=== PATIENT | female | born 1975 | race Two or more races ===

== ENCOUNTER → 2016-12-18 | Outpatient (REF) | payer MEDICAID, OTHER | LOC: M SFHCLERA 16:15 | PROVIDERS: ATTEND Family Medicine | DX: Z13.220 Encounter for screening for lipoid disorders (principal); Z13.1 Encounter for screening for diabetes mellitus ==

== ENCOUNTER → 2017-03-08 | Outpatient (CLI) | payer OTHER | LOC: M LRY 14:01 | DX: R06.02 Shortness of breath (principal) | CPT/HCPCS: 71046 ==

== ENCOUNTER → 2017-07-12 | Outpatient (CLI) | payer OTHER, MEDICAID | LOC: M LRY 12:18 | DX: M25.561 Pain in right knee (principal) | CPT/HCPCS: 73564 ==

== ENCOUNTER → 2018-06-07 | Outpatient (CLI) | payer MEDICAID ==
--- NOTE | 2018-06-07 10:16 | REP ---
LUMBAR SPINE SEVEN VIEWS: HISTORY: Back pain. The patient is status post T4 to L2 posterior spinal fusion. Metal hardware is present. There is no acute fracture or subluxation. The L2-3 and L3-4 intervertebral discs are decreased in height consistent with disc degeneration. Osteophytes are present at L2 and L3. The facet joints are normal in appearance. There is spinal bifida occulta of S1. There is scoliosis of the lower thoracic and lumbar spine convex to the left. IMPRESSION: 1. The patient is status post T4 to L2 posterior spinal fusion. 2. Degenerative change as described above. Electronically Signed by Cisco Garcia MD 06/07/2018 10:30 A
--- NOTE | 2018-06-07 10:17 | REP ---
THORACIC SPINE, THREE VIEWS: HISTORY: Back pain. The patient is status post T4 to L2 posterior spinal fusion. Metal hardware is present. There is no acute fracture or subluxation. The intervertebral discs are normal in height. There is scoliosis of the upper thoracic spine convex to the left and mid and lower thoracic spine convex to the right. IMPRESSION: The patient is status post T4 to L2 posterior spinal fusion. Electronically Signed by Cisco Garcia MD 06/07/2018 10:31 A
== END ==
LOC: M LRY 09:10
PROVIDERS: ATTEND Family Medicine
DX: M51.36 Other intervertebral disc degeneration, lumbar region (principal); Q76.0 Spina bifida occulta; M41.9 Scoliosis, unspecified; Z98.1 Arthrodesis status

== ENCOUNTER → 2018-11-11 | Outpatient (REF) | payer OTHER ==
[2018-11-11 20:52] LABS: BASO # 0.1 10^3/uL (0.0-0.2); BASO % 1.3 % (0.0-1.0); EOS # 0.2 10^3/uL (0.0-0.5); HEMATOCRIT 36.4 % (36.0-47.0); HEMOGLOBIN 11.8 g/dl (12.0-15.5); LYMPH # 2.3 10^3/uL (1.5-5.0); LYMPH % 41.7 % (24.0-44.0); MEAN CORPUSCULAR HEMOGLOBIN 29.6 pg (27.0-33.0); MEAN CORPUSCULAR HGB CONC 32.4 g/dl (32.0-36.5); MEAN CORPUSCULAR VOLUME 91.2 fl (80.0-96.0); MONO # 0.4 10^3/uL (0.0-0.8); MONO % 7.6 % (0.0-5.0); NEUTROPHILS # 2.5 10^3/uL (1.5-8.5); NEUTROPHILS % 46.2 % (36.0-66.0); PLATELET COUNT, AUTOMATED 351 10^3/uL (150-450); RED BLOOD COUNT 3.99 10^6/uL (4.00-5.40); WHITE BLOOD COUNT 5.4 10^3/uL (4.0-10.0)
[2018-11-11 21:02] LABS: ALBUMIN 3.9 GM/DL (3.2-5.2); ALT/SGPT 16 U/L (12-78); BILIRUBIN,TOTAL 0.2 MG/DL (0.2-1.0); BLOOD UREA NITROGEN 13 MG/DL (7-18); CALCIUM LEVEL 8.9 MG/DL (8.5-10.1); CARBON DIOXIDE LEVEL 27 MEQ/L (21-32); CHLORIDE LEVEL 108 MEQ/L (98-107); CREATININE FOR GFR 0.83 MG/DL (0.55-1.30); GLOMERULAR FILTRATION RATE > 60.0 (>58); GLUCOSE, FASTING 83 MG/DL (70-100); POTASSIUM SERUM 4.5 MEQ/L (3.5-5.1); SODIUM LEVEL 140 MEQ/L (136-145); TOTAL PROTEIN 7.1 GM/DL (6.4-8.2)
== END ==
LOC: M SFHCLERA 14:47
PROVIDERS: ATTEND Family Medicine
DX: F31.31 Bipolar disorder, current episode depressed, mild (principal)

== ENCOUNTER → 2018-11-26 | Outpatient (REF) | payer OTHER ==
[2018-11-26 11:51] LABS: BASO # 0.1 10^3/uL (0.0-0.2); BASO % 1.3 % (0.0-1.0); EOS # 0.2 10^3/uL (0.0-0.5); EOS % 3.8 % (0.0-3.0); HEMATOCRIT 38.3 % (36.0-47.0); HEMOGLOBIN 12.4 g/dl (12.0-15.5); LYMPH # 1.7 10^3/uL (1.5-5.0); LYMPH % 44.1 % (24.0-44.0); MEAN CORPUSCULAR HEMOGLOBIN 30.6 pg (27.0-33.0); MEAN CORPUSCULAR HGB CONC 32.4 g/dl (32.0-36.5); MEAN CORPUSCULAR VOLUME 94.6 fl (80.0-96.0); MONO # 0.5 10^3/uL (0.0-0.8); MONO % 12.3 % (0.0-5.0); NEUTROPHILS # 1.5 10^3/uL (1.5-8.5); NEUTROPHILS % 38.5 % (36.0-66.0); PLATELET COUNT, AUTOMATED 269 10^3/uL (150-450); RED BLOOD COUNT 4.05 10^6/uL (4.00-5.40); WHITE BLOOD COUNT 3.9 10^3/uL (4.0-10.0)
[2018-11-26 12:09] LABS: ALBUMIN 3.6 GM/DL (3.2-5.2); ALT/SGPT 14 U/L (12-78); BILIRUBIN,TOTAL 0.4 MG/DL (0.2-1.0); BLOOD UREA NITROGEN 14 MG/DL (7-18); CARBON DIOXIDE LEVEL 29 MEQ/L (21-32); CHLORIDE LEVEL 106 MEQ/L (98-107); CREATININE FOR GFR 0.74 MG/DL (0.55-1.30); FERRITIN 59 NG/ML (8-252); GLOMERULAR FILTRATION RATE > 60.0 (>58); GLUCOSE, FASTING 83 MG/DL (70-100); IRON (FE) 123 UG/DL (50-170); PERCENT SATURATION 39.8 % (13.2-45.0); POTASSIUM SERUM 4.7 MEQ/L (3.5-5.1); SODIUM LEVEL 141 MEQ/L (136-145); TOTAL IRON BINDING CAPACITY 309 UG/DL (250-450); VALPROIC ACID (DEPAKOTE) 40.8 UG/ML (50.0-100.0)
[2018-11-26 12:12] LABS: VITAMIN B12 LEVEL 739 PG/ML
[2018-11-26 12:13] LABS: FOLATE 14.5 NG/ML
== END ==
LOC: M SFHCLERA 08:45
PROVIDERS: ATTEND Family Medicine
DX: F31.31 Bipolar disorder, current episode depressed, mild (principal); D64.9 Anemia, unspecified

== ENCOUNTER → 2018-12-05 | Outpatient (REF) | payer OTHER ==
[2018-12-05 11:34] LABS: BASO # 0.1 10^3/uL (0.0-0.2); BASO % 1.4 % (0.0-1.0); EOS # 0.3 10^3/uL (0.0-0.5); HEMATOCRIT 38.8 % (36.0-47.0); HEMOGLOBIN 12.7 g/dl (12.0-15.5); LYMPH # 1.9 10^3/uL (1.5-5.0); LYMPH % 37.8 % (24.0-44.0); MEAN CORPUSCULAR HEMOGLOBIN 30.6 pg (27.0-33.0); MEAN CORPUSCULAR HGB CONC 32.7 g/dl (32.0-36.5); MEAN CORPUSCULAR VOLUME 93.5 fl (80.0-96.0); MONO # 0.6 10^3/uL (0.0-0.8); MONO % 11.5 % (0.0-5.0); NEUTROPHILS # 2.1 10^3/uL (1.5-8.5); NEUTROPHILS % 42.3 % (36.0-66.0); PLATELET COUNT, AUTOMATED 374 10^3/uL (150-450); RED BLOOD COUNT 4.15 10^6/uL (4.00-5.40); WHITE BLOOD COUNT 4.9 10^3/uL (4.0-10.0)
== END ==
LOC: M SFHCLERA 08:01
PROVIDERS: ATTEND Family Medicine
DX: F31.31 Bipolar disorder, current episode depressed, mild (principal)

== ENCOUNTER 2019-08-28 16:04 | Emergency (ER) | payer MEDICAID, OTHER, SELFPAY ==
[~2019-08-28] VITALS: Ht 170.2 cm; Wt 68.6 kg
[2019-08-28 16:05] VITALS: BP 120/70
[2019-08-28] MEDS ORDERED: MONT10TA4 (17:07)
[2019-08-28] MEDS ORDERED: AMIT75TA (17:07)
[2019-08-28] MEDS ORDERED: ALBU8.5H (17:07)
[2019-08-28] MEDS ORDERED: ARNU1INH3 (17:07)
[2019-08-28] MEDS ORDERED: BOOSTRIX/ADACEL VACCINE (DIPHTH/PERTUSS/ACELL/TETANUS) 0.5ML SYR IM ONE (17:30)
[2019-08-28] MEDS ORDERED: BACITRACIN OINTMENT 30GM TUBE TOP ONE (17:30)
[2019-08-28] MEDS ORDERED: BACI500O21 TOP (17:36)
== END 2019-08-28 18:00 | disposition home or self-care (01) ==
LOC: M ED 16:04
DX: L55.1 Sunburn of second degree (principal); L55.0 Sunburn of first degree

== ENCOUNTER → 2019-12-10 | Outpatient (CLI) | payer OTHER ==
[~2019-12-10] MED LIST: ALBU8.5H; AMIT75TA; ARNU1INH3; BACI500O21 TOP; MONT10TA4
[2019-12-10 16:59] LABS: ALBUMIN 3.7 GM/DL (3.2-5.2); ALT/SGPT 14 U/L (12-78); BILIRUBIN,TOTAL 0.4 MG/DL (0.2-1.0); BLOOD UREA NITROGEN 18 MG/DL (7-18); CALCIUM LEVEL 9.2 MG/DL (8.5-10.1); CARBON DIOXIDE LEVEL 27 MEQ/L (21-32); CHLORIDE LEVEL 109 MEQ/L (98-107); CREATININE FOR GFR 0.89 MG/DL (0.55-1.30); GLOMERULAR FILTRATION RATE > 60.0 (>58); GLUCOSE, FASTING 104 MG/DL (70-100); POTASSIUM SERUM 4.2 MEQ/L (3.5-5.1); SODIUM LEVEL 140 MEQ/L (136-145)
[2019-12-10 17:11] LABS: BASO # 0.1 10^3/uL (0.0-0.2); BASO % 1.1 % (0.0-1.0); EOS # 0.3 10^3/uL (0.0-0.5); EOS % 3.4 % (0.0-3.0); HEMATOCRIT 39.4 % (36.0-47.0); HEMOGLOBIN 12.8 g/dl (12.0-15.5); LYMPH # 1.8 10^3/uL (1.5-5.0); MEAN CORPUSCULAR HEMOGLOBIN 29.9 pg (27.0-33.0); MEAN CORPUSCULAR HGB CONC 32.5 g/dl (32.0-36.5); MEAN CORPUSCULAR VOLUME 92.1 fl (80.0-96.0); MONO # 0.7 10^3/uL (0.0-0.8); MONO % 9.2 % (0.0-5.0); NEUTROPHILS # 4.5 10^3/uL (1.5-8.5); PLATELET COUNT, AUTOMATED 330 10^3/uL (150-450); RED BLOOD COUNT 4.28 10^6/uL (4.00-5.40); WHITE BLOOD COUNT 7.3 10^3/uL (4.0-10.0)
[2019-12-10 17:32] LABS: HEMOGLOBIN A1c 5.1 %
== END ==
LOC: M WUC 14:34
PROVIDERS: ATTEND Family Medicine
DX: R53.83 Other fatigue (principal); K59.00 Constipation, unspecified

== ENCOUNTER → 2020-03-31 | Outpatient (CLI) | payer OTHER ==
[~2020-03-31] MED LIST changes: -AMIT75TA; +AMIT75TA PO; +ARIP1TAB PO; +CLAR10CA3 PO; +ECHI1CAP2 PO; +LEVOTAB10 PO; +MONT10TA10; +MONT10TA10 PO; -MONT10TA4; +OMEP-218 PO
== END ==
LOC: M LABSMTC 11:45
PROVIDERS: ATTEND Anesthesiology
DX: Z01.812 Encounter for preprocedural laboratory examination (principal); Z20.822 Contact with and (suspected) exposure to COVID-19

== ENCOUNTER 2020-04-05 09:15 | Day surgery (SDC) | payer OTHER ==
[~2020-04-05] VITALS: Ht 170.2 cm; Wt 65.2 kg
[~2020-04-05 09:15] MED LIST changes: -CLAR10CA3 PO; -ECHI1CAP2 PO; -MONT10TA10; -MONT10TA10 PO; +MONT5TAB2; +MONT5TAB2 PO; +NS 1,000 ML IV ONE
--- OUTSIDE RECORDS SUMMARY | 2020-04-05 09:21 | CCD | Continuity of Care Document ---
Author Author Carol LUNA M.D. Organization Unknown Address [address] [place] [address], [address] [place] [address] Phone [phone] Care Team Providers Care Medical Records Secretary Name Role Phone Flaquita Johnson M.D. AUTM [phone] AUTM Unavailable Problems Active Problems Provider Date Uncomplicated moderate persistent asthma SAMANTA Gray Onset: 12/08/2019 Allergic asthma without status asthmaticus Robin gonzales M.D. Onset: 03/17/2020 Social History Type Date Description Comments Sex Unknown ETOH Use 2x/wk Tobacco Use Start: Unknown End: Unknown Patient is a former smoker Smoking Status Reviewed: 12/08/19 Patient is a former smoker Allergies, Adverse Reactions, Alerts Description No Known Drug Allergies Medications Active Medications SIG Qnty Indications Ordering Provide r Date Arnuity Ellipta 200mcg/Act Aerosol inhale one puff by mouth every day 30units J45.40 SAMANTA Gray 04/06 Montelukast Sodium 10mg Tablets 1 by mouth every day 30tabs SAMANTA Gray Ventolin HFA 108(90Base) mcg/Act A erosol 2 puffs four times a day as needed 18units SAMANTA Gray Claritin 10mg Tablets 1tab po qd Unknown Prilosec OTC 20mg Tablets DR 1tab po bid Unknown Echinacea 760MG Tablet 1tab po bid Unknown 0 Turmeric 500mg Capsules 1cap po bid Unknown Immunizations Description No Information Available Vital Signs Date Vital Result Comment 03/17/2020 10:30am BP Systolic 114 mmHg BP Diastolic 66 mmHg Height 67 inches 5'7" Weight 150.00 lb BMI (Body Mass Index) 23.5 kg/m2 [place] Body Weight 135 lb Weight 68.040 kg BSA (Body Surface Area) 1.79 m2 12/08/2019 1:23pm BP Systolic 114 mmHg BP Diastolic 76 mmHg Heart Rate 76 /min O2 % BldC Oximetry 100 % Body Temperature 97.3 F Height 66.5 inches 5'6.50" Weight 149.00 lb BMI (Body Mass Index) 23.7 kg/m2 [place] Body Weight 130 lb Weight 67.586 kg BSA (Body Surface Area) 1.77 m2 Results Description No Information Available Procedures Date Code Description Status 12/08/2019 43676 Spirometry Completed Medical Devices Description No Information Available Encounters Type Date Location Provider Dx Diagnosis Office Visit 12/08/2019 1:30p [facility] SAMANTA [place]berry J45.40 Moderate persistent asthma, uncomplicate d Assessments Date Code Description Provider 03/17/2020 K59.00 Constipation, unspecified Stephanie Luna M.D. 12/08/2019 J45.40 Moderate persistent asthma, unco mplicated SAMANTA Gray Plan of Treatment Future Appointment(s):* 12/07/2020 11:00 am - SAMANTA Gray at [facility] 03/17/2020 - Robin Luna M.D.* K59.00 Constipation, unspecified * * Comments:* Impression:-- Chronic constipation- worsening and responding to miralax, -- Needs further evaluation -- DDx- r/o functional vs colon polyp and cancer * Recommendations:* -- Patient is educated about the prior test results and all possible differential diagnoses. All questions answered. -- Educated patient to take high fiber diet and current laxatives - miralax daily -- Will schedule for diagnostic colonoscopy. The procedure, indications, risks (bleeding, perforation, infection, hypotension, respiratory depression, allergy, need for endotracheal intubation, surgery, colostomy, cardiac arrest, even ), benefits, limitations (e.g., missing a lesion), and all other alternatives (including no intervention) were explained to the patient who understood and agreed/ consented for the procedure. -- Return to clinic 2 weeks post procedures. -- Follow up with PMD for routine medical care and other age appropriate health maintenance.. Functional Status Description No Information Available Mental Status Description No Information Available Referrals Refer to Reason for Referral Status Appt Date Robin Luna M.D. new onset constipation Created 03/17/[address] [place] [address], [place] [id number] [phone]
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
--- OUTSIDE RECORDS SUMMARY | 2020-04-05 09:21 | CCD ---
Author Author [facility] Organization [facility] Address Unknown Phone Unavailable Care Team Providers Care Loans Consultant Name Role Phone Arely, L Alka CREDIT ADMINISTRATOR Unavailable Unavailable Arely, L Alka CREDIT ADMINISTRATOR Unavailable Unavailable Arely, L Alka CREDIT ADMINISTRATOR Unavailable Unavailable Arely, L Alka CREDIT ADMINISTRATOR Unavailable Unavailable Arely, L Alka CREDIT ADMINISTRATOR Unavailable Unavailable Arely, L Alka CREDIT ADMINISTRATOR Unavailable Unavailable Arely, L Alka CREDIT ADMINISTRATOR Unavailable Unavailable Arely, L Alka CREDIT ADMINISTRATOR Unavailable Unavailable Arely, L Alka CREDIT ADMINISTRATOR Unavailable Unavailable Arely, L Alka CREDIT ADMINISTRATOR Unavailable Unavailable Arely, L Alka CREDIT ADMINISTRATOR Unavailable Unavailable Arely, L Alka CREDIT ADMINISTRATOR Unavailable Unavailable Arely, L Alka CREDIT ADMINISTRATOR Unavailable Unavailable Arely, L Alka CREDIT ADMINISTRATOR Unavailable Unavailable Arely, L Alka CREDIT ADMINISTRATOR Unavailable Unavailable Arely, L Alka CREDIT ADMINISTRATOR Unavailable Unavailable Arely, L Alka CREDIT ADMINISTRATOR Unavailable Unavailable Arely, L Alka CREDIT ADMINISTRATOR Unavailable Unavailable Arely, L Alka CREDIT ADMINISTRATOR Unavailable Unavailable Arely, L Alka CREDIT ADMINISTRATOR Unavailable Unavailable Arely, L Alka CREDIT ADMINISTRATOR Unavailable Unavailable Arely, L Alka CREDIT ADMINISTRATOR Unavailable Unavailable Re-disclosure Warning The records that you are about to access may contain information from federally-assisted alcohol or drug abuse programs. If such information is present, then the following federally mandated warning applies: This information has been disclosed to you from records protected by federal confidentiality rules (42 CFR part 2). The federal rules prohibit you from making any further disclosure of this information unless further disclosure is expressly permitted by the written consent of the person to whom it pertains or as otherwise permitted by 42 CFR part 2. A general authorization for the release of medical or other information is NOT sufficient for this purpose. The Federal rules restrict any use of the information to criminally investigate or prosecute any alcohol or drug abuse patient.The records that you are about to access may contain highly sensitive health information, the redisclosure of which is protected by Article 27-F of the [facility] Public Health law. If you continue you may have access to information: Regarding HIV / AIDS; Provided by facilities licensed or operated by the [facility] Office of Mental Health; or Provided by the [facility] Office for People With Developmental Disabilities. If such information is present, then the following [facility] mandated warning applies: This information has been disclosed to you from confidential records which are protected by state law. State law prohibits you from making any further disclosure of this information without the specific written consent of the person to whom it pertains, or as otherwise permitted by law. Any unauthorized further disclosure in violation of state law may result in a fine or fdc sentence or both. A general authorization for the release of medical or other information is NOT sufficient authorization for further disc losure. Encounters Encounter Providers Location Date Indications Data Source(s ) Unknown [address] [place] [id number] 03/17/2020 12:00:00 AM EST eCW1 ([facility]) Outpatient [address] [facility] [id number] 01/08/2020 12:00:00 AM EST eCW1 ([facility]) Outpatient Attender: Alka Velarde/Reynaldo/Barron/Regla 12/08/2019 01:30:00 PM EDT MEDENT ([facility]) Unknown [address] [facility] [id number] 12/05/2019 12:00:00 AM EDT eCW1 ([facility]) Outpatient [address] [facility] [id number] 12/04/2019 12:00:00 AM EDT eCW1 ([facility]) [facility] [address] [place] [phone] 08/29/2019 12:00:00 AM EDT eCW1 ([facility] [address] [place] [address] 05/05/2019 12:00:00 AM EST eCW1 ([facility]) [facility] [address] [facility] [address] 04/30/2019 12:00:00 AM EST eCW1 ([facility]) [facility] [address] [place] [phone] 04/14/2019 12:00:00 AM EST eCW1 ([facility]) [address] [address] 03/31/2019 12:00:00 AM EST eCW1 ([facility]) [facility] [address] [place] [address], [place] [address] 03/19/2019 12:00:00 AM EST eCW1 ([facility]) [facility] [address] [place] [address], [place] [address] 03/10/2019 12:00:00 AM EST eCW1 ([facility]) [facility] [address] [place] [address], [place] [address] 02/14/2019 12:00:00 AM EST eCW1 ([facility]) [facility] [address] [place] [address], [place] [address] 02/05/2019 12:00:00 AM EST eCW1 ([facility]) Immunizations Vaccine Date Status Description Data Source(s) influenza, recombinant, quadrIvalent,injectable, prese rvative free 01/08/2020 11:01:00 AM EST completed eCW1 ([facility]) influenza, recombinant, quadrIvalent,injectable, prese rvative free 01/08/2020 11:01:00 AM EST completed eCW1 ([facility]) influenza, recombinant, quadrIvalent,injectable, prese rvative free 03/19/2019 06:48:00 AM EST completed eCW1 ([facility]) influenza, recombinant, quadrIvalent,injectable, prese rvative free 03/19/2019 06:48:00 AM EST completed eCW1 ([facility]) influenza, recombinant, quadrIvalent,injectable, prese rvative free 03/19/2019 06:48:00 AM EST completed eCW1 ([facility]) influenza, recombinant, quadrIvalent,injectable, prese rvative free 03/19/2019 06:48:00 AM EST completed eCW1 ([facility]) influenza, recombinant, quadrIvalent,injectable, prese rvative free 03/19/2019 06:48:00 AM EST completed eCW1 ([facility]) Medications Medication Brand Name Start Date Product Form Dose Route Admi nistrative Instructions Pharmacy Instructions Status Indications Reaction Description Data Source(s) 420 gram 03/25/2020 12:00:00 AM EST recon soln 4000 DRINK THE LIQUID PER THE PRE-PROCEDURE INSTRUCTIONS DRINK THE LIQUID PER THE PRE-PROCEDUR E INSTRUCTIONS SOLD: 03/31/2020 [facility] 5 mg 03/25/2020 12:00:00 AM EST tablet,delayed release (DR/EC) 4 TAKE FOUR TABLETS BY MOUTH TOGETHER TAKE FOUR TABLETS BY MOUTH TOGETHER SOLD: 03/31/2020 [facility] 17 gram/dose 03/22/2020 12:00:00 AM EST powder 510 MIX ONE CAPFUL IN 8 OZ OF FLUID ONCE DAILY MIX ONE CAPFUL IN 8 OZ OF FLUID ONCE DAILY SOLD: 03/31/2020 [facility] 5 mg 01/08/2020 12:00:00 AM EST tablet 30 TAKE ONE TABLET BY MOUTH IN THE EVENING ONCE A DAY TAKE ONE TABLET BY MOUTH IN THE EVENING ONCE A DAY ZI [facility] 5 mg 01/08/2020 12:00:00 AM EST tablet 30 TAKE ONE TABLET BY MOUTH IN THE EVENING ONCE A DAY TAKE ONE TABLET BY MOUTH IN THE EVENING ONCE A DAY ZI [facility] 10 mg 01/08/2020 12:00:00 AM EST tablet 30 TAKE ONE TABLET BY MOUTH EVERY DAY TAKE ONE TABLET BY MOUTH EVERY DAY SOLD: 03/17/2020 [facility] aripiprazole 10 MG Oral Tablet Aripiprazole 10 MG Aripiprazo le 10 MG 01/08/2020 12:00:00 AM EST 1.0 {tablet} active Ar ipiprazole 10 MG eCW1 ([facility]) 10 mg 01/08/2020 12:00:00 AM EST tablet 30 TAKE ONE TABLET BY MOUTH EVERY DAY TAKE ONE TABLET BY MOUTH EVERY DAY SOLD: 02/10/2020 [facility] aripiprazole 10 MG Oral Tablet Aripiprazole 10 MG Aripiprazo le 10 MG 01/08/2020 12:00:00 AM EST 1.0 {tablet} active Ar ipiprazole 10 MG eCW1 ([facility]) 200 mcg/actuation 12/09/2019 12:00:00 AM EDT blister with de vice 30 INHALE ONE PUFF BY MOUTH EVERY DAY INHALE ONE PUFF BY MOUTH EVERY DAY SOLD: 03/17/2020 [facility] 90 mcg/actuation 12/09/2019 12:00:00 AM EDT HFA aerosol inha ler 18 INHALE TWO PUFFS BY MOUTH EVERY 4 HOURS NEEDED INHALE TWO PUFFS BY MOUTH EVERY 4 HOURS NEEDED SOLD: 03/17/2020 [facility] 90 mcg/actuation 12/09/2019 12:00:00 AM EDT HFA aerosol inha ler 18 INHALE TWO PUFFS BY MOUTH EVERY 4 HOURS NEEDED INHALE TWO PUFFS BY MOUTH EVERY 4 HOURS NEEDED SOLD: 02/10/2020 [facility] 90 mcg/actuation 12/09/2019 12:00:00 AM EDT HFA aerosol inha ler 18 INHALE TWO PUFFS BY MOUTH EVERY 4 HOURS NEEDED INHALE TWO PUFFS BY MOUTH EVERY 4 HOURS NEEDED SOLD: 12/10/2019 [facility] 200 mcg/actuation 12/09/2019 12:00:00 AM EDT blister with de vice 30 INHALE ONE PUFF BY MOUTH EVERY DAY INHALE ONE PUFF BY MOUTH EVERY DAY SOLD: 12/10/2019 [facility] montelukast 10 MG Oral Tablet MONTELUKAST SODIUM 12/09/2019 12:0 0:00 AM EDT tablet 30 TAKE ONE TABLET BY MOUTH EVERY D AY TAKE ONE TABLET BY MOUTH EVERY DAY SOLD: 03/17/2020 [facility] montelukast 10 MG Oral Tablet MONTELUKAST SODIUM 12/09/2019 12:0 0:00 AM EDT tablet 30 TAKE ONE TABLET BY MOUTH EVERY D AY TAKE ONE TABLET BY MOUTH EVERY DAY SOLD: 02/10/2020 [facility] 200 mcg/actuation 12/09/2019 12:00:00 AM EDT blister with de vice 30 INHALE ONE PUFF BY MOUTH EVERY DAY INHALE ONE PUFF BY MOUTH EVERY DAY SOLD: 02/10/2020 [facility] montelukast 10 MG Oral Tablet MONTELUKAST SODIUM 12/09/2019 12:0 0:00 AM EDT tablet 30 TAKE ONE TABLET BY MOUTH EVERY D AY TAKE ONE TABLET BY MOUTH EVERY DAY SOLD: 12/10/2019 [facility] 5 mg 12/09/2019 12:00:00 AM EDT tablet 30 TAKE ONE TABLET BY MOUTH EVERY EVENING TAKE ONE TABLET BY MOUTH EVERY EVENING SOLD: 12/10/2019 [facility] levocetirizine dihydrochloride 5 MG Oral Tablet Levocetirizine Dihydrochloride 5 MG Levocetirizine Dihydrochloride 5 MG 12/08/2019 12:00:00 AM EDT 1.0 {tablet_in_the_evening} active Levoceti rizine Dihydrochloride 5 MG eCW1 ([facility]) levocetirizine dihydrochloride 5 MG Oral Tablet Levocetirizine Dihydrochloride 5 MG Levocetirizine Dihydrochloride 5 MG 12/08/2019 12:00:00 AM EDT 1.0 {tablet_in_the_evening} active Levoceti rizine Dihydrochloride 5 MG eCW1 ([facility]) 20 mg 12/05/2019 12:00:00 AM EDT capsule,delayed release (DR/EC) 180 TAKE ONE CAPSULE BY MOUTH TWICE A DAY TAKE ONE CAPSULE BY MOUTH TWICE A DAY SOLD: 03/17/2020 [facility] 17 gram/dose 12/05/2019 12:00:00 AM EDT powder 510 MIX 1 CAPFUL (17G) WITH 8 OUNCES OF FLUID AND DRINK ONCE DAILY MIX 1 CAPFUL (17G) WITH 8 OUNCES OF FLUI D AND DRINK ONCE DAILY SOLD: 12/05/2019 [facility] 20 mg 12/05/2019 12:00:00 AM EDT capsule,delayed release (DR/EC) 180 TAKE ONE CAPSULE BY MOUTH TWICE A DAY TAKE ONE CAPSULE BY MOUTH TWICE A DAY SOLD: 12/05/2019 [facility] Fexofenadine hydrochloride 180 MG Oral Tablet Fexofena dine HCl 180 MG Fexofenadine HCl 180 MG 12/04/2019 12:00:00 AM EDT 1.0 {tablet} active Fexofenadine HCl 180 MG eCW1 ([facility]) POLYETHYLENE GLYCOL 3350 142 MG/ML Oral Solution [Elle lax] MiraLax 17 GM MiraLax 17 GM 12/04/2019 12:00:00 AM EDT 1.0 {packet_mixed_with_8_ou nces_of_fluid} active MiraLax 17 GM eCW1 ([facility]) POLYETHYLENE GLYCOL 3350 142 MG/ML Oral Solution [Elle lax] MiraLax 17 GM MiraLax 17 GM 12/04/2019 12:00:00 AM EDT 1.0 {packet_mixed_with_8_ou nces_of_fluid} active MiraLax 17 GM eCW1 ([facility]) Fexofenadine hydrochloride 180 MG Oral Tablet Fexofena dine HCl 180 MG Fexofenadine HCl 180 MG 12/04/2019 12:00:00 AM EDT 1.0 {tablet} active Fexofenadine HCl 180 MG eCW1 ([facility]) POLYETHYLENE GLYCOL 3350 142 MG/ML Oral Solution [Elle lax] MiraLax 17 GM MiraLax 17 GM 12/04/2019 12:00:00 AM EDT 1.0 {packet_mixed_with_8_ou nces_of_fluid} active MiraLax 17 GM eCW1 ([facility]) POLYETHYLENE GLYCOL 3350 142 MG/ML Oral Solution [Elle lax] MiraLax 17 GM MiraLax 17 GM 12/04/2019 12:00:00 AM EDT 1.0 {packet_mixed_with_8_ou nces_of_fluid} active MiraLax 17 GM eCW1 ([facility]) 20 mg 03/11/2019 12:00:00 AM EST tablet 60 TAKE TWO TABLETS BY MOUTH EVERY DAY TAKE TWO TABLETS BY MOUTH EVERY DAY SOLD: 03/12/2019 [facility] 20 mg 03/11/2019 12:00:00 AM EST tablet 60 TAKE TWO TABLETS BY MOUTH EVERY DAY TAKE TWO TABLETS BY MOUTH EVERY DAY SOLD: 04/15/2019 [facility] Famotidine 40 MG Oral Tablet Famotidine 40 MG 03/10/2019 12:00:00 A M EST 1.0 {tablet_at_bedtime} suspended Famotidine 40 MG eCW1 ([facility]) Famotidine 40 MG Oral Tablet Famotidine 40 MG 03/10/2019 12:00:[address] active 1 tablet at bedtime eCW1 ([facility]) Famotidine 40 MG Oral Tablet Famotidine 40 MG 03/10/2019 12:00:[address] active 1 tablet at bedtime eCW1 ([facility]) Famotidine 40 MG Oral Tablet Famotidine 40 MG 03/10/2019 12:00:00 A M EST 1.0 {tablet_at_bedtime} suspended Famotidine 40 MG eCW1 ([facility]) Famotidine 40 MG Oral Tablet Famotidine 40 MG 03/10/2019 12:00:[address] active 1 tablet at bedtime eCW1 ([facility]) 200 mcg/actuation 02/11/2019 12:00:00 AM EST blister with de vice 30 INHALE ONE PUFF BY MOUTH EVERY DAY INHALE ONE PUFF BY MOUTH EVERY DAY SOLD: 04/15/2019 [facility] 200 mcg/actuation 02/11/2019 12:00:00 AM EST blister with de vice 30 INHALE ONE PUFF BY MOUTH EVERY DAY INHALE ONE PUFF BY MOUTH EVERY DAY SOLD: 02/22/2019 [facility] 15 mg 02/11/2019 12:00:00 AM EST tablet 30 TAKE ONE TABLET BY MOUTH EVERY DAY TAKE ONE TABLET BY MOUTH EVERY DAY SOLD: 02/22/2019 [facility] 15 mg 02/11/2019 12:00:00 AM EST tablet 30 TAKE ONE TABLET BY MOUTH EVERY DAY TAKE ONE TABLET BY MOUTH EVERY DAY SOLD: 04/15/2019 [facility] Prednisone 20 MG Oral Tablet PredniSONE 20 MG PredniSONE 20 MG 02/05/2019 12:00:00 AM EST suspended 2 tab let eCW1 ([facility]) 12 HR Guaifenesin 600 MG Extended Release Oral Tablet [Mucinex] Mucinex 600 MG Mucinex 600 MG 02/05/2019 12:00:00 AM EST act elton 1 tablet as needed eCW1 ([facility]) 12 HR Guaifenesin 600 MG Extended Release Oral Tablet [Mucinex] Mucinex 600 MG Mucinex 600 MG 02/05/2019 12:00:00 AM EST act elton 1 tablet as needed eCW1 ([facility]) Prednisone 20 MG Oral Tablet PredniSONE 20 MG PredniSONE 20 MG 02/05/2019 12:00:00 AM EST suspended 2 tab let eCW1 ([facility]) 12 HR Guaifenesin 600 MG Extended Release Oral Tablet [Mucinex] Mucinex 600 MG Mucinex 600 MG 02/05/2019 12:00:00 AM EST 1.0 {tablet_as_needed} suspended Mucinex 600 MG eCW1 ([facility]) Prednisone 20 MG Oral Tablet PredniSONE 20 MG PredniSONE 20 MG 02/05/2019 12:00:00 AM EST 2.0 {tablet} suspended PredniSONE 20 MG eCW1 ([facility]) 600 mg 02/05/2019 12:00:00 AM EST tablet extended release 12hr 28 TAKE ONE TABLET BY MOUTH NEEDED EVERY 12 HOURS TAKE ONE TABLET BY MOUTH NEEDED EVERY 12 HOURS SOLD: 02/05/2019 [facility] 20 mg 02/05/2019 12:00:00 AM EST tablet 10 TAKE TWO TABLETS BY MOUTH EVERY DAY FOR 5 DAYS TAKE TWO TABLETS BY MOUTH EVERY DAY FOR 5 DAYS SOLD: 019 [facility] Prednisone 20 MG Oral Tablet PredniSONE 20 MG PredniSONE 20 MG 02/05/2019 12:00:00 AM EST 2.0 {tablet} suspended PredniSONE 20 MG eCW1 ([facility]) 12 HR Guaifenesin 600 MG Extended Release Oral Tablet [Mucinex] Mucinex 600 MG Mucinex 600 MG 02/05/2019 12:00:00 AM EST noris pended 1 tablet as needed eCW1 ([facility]) Prednisone 20 MG Oral Tablet PredniSONE 20 MG PredniSONE 20 MG 02/05/2019 12:00:00 AM EST active 2 tablet eCW1 ([facility]) Prednisone 20 MG Oral Tablet PredniSONE 20 MG PredniSONE 20 MG 02/05/2019 12:00:00 AM EST active 2 tablet eCW1 ([facility]) 12 HR Guaifenesin 600 MG Extended Release Oral Tablet [Mucinex] Mucinex 600 MG Mucinex 600 MG 02/05/2019 12:00:00 AM EST 1.0 {tablet_as_needed} suspended Mucinex 600 MG eCW1 ([facility]) 12 HR Guaifenesin 600 MG Extended Release Oral Tablet [Mucinex] Mucinex 600 MG Mucinex 600 MG 02/05/2019 12:00:00 AM EST noris pended 1 tablet as needed eCW1 ([facility]) 90 mcg/actuation 01/17/2019 12:00:00 AM EST HFA aerosol inha ler 18 INHALE TWO PUFFS BY MOUTH NEEDED EVERY 4 HOURS INHALE TWO PUFFS BY MOUTH NEEDED EVERY 4 HOURS SOLD: 04/15/2019 [facility] 90 mcg/actuation 01/17/2019 12:00:00 AM EST HFA aerosol inha ler 18 INHALE TWO PUFFS BY MOUTH NEEDED EVERY 4 HOURS INHALE TWO PUFFS BY MOUTH NEEDED EVERY 4 HOURS SOLD: 02/05/2019 [facility] 250 mg 11/15/2018 12:00:00 AM EDT tablet,delayed release (DR/EC) 60 TAKE ONE TABLET BY MOUTH TWICE A DAY TAKE ONE TABLET BY MOUTH TWICE A DAY SOLD: 02/22/2019 [facility] montelukast 10 MG Oral Tablet MONTELUKAST SODIUM 11/07/2018 12:0 0:00 AM EDT tablet 30 TAKE ONE TABLET BY MOUTH EVERY E VENING TAKE ONE TABLET BY MOUTH EVERY EVENING SOLD: 02/22/2019 [facility] montelukast 10 MG Oral Tablet MONTELUKAST SODIUM 11/07/2018 12:0 0:00 AM EDT tablet 30 TAKE ONE TABLET BY MOUTH EVERY E VENING TAKE ONE TABLET BY MOUTH EVERY EVENING SOLD: 04/15/2019 [facility] 75 mg 09/25/2018 12:00:00 AM EDT tablet 30 TAKE ONE TABLET BY MOUTH AT BEDTIME TAKE ONE TABLET BY MOUTH AT BEDTIME SOLD: 02/22/2019 [facility] 75 mg 09/25/2018 12:00:00 AM EDT tablet 30 TAKE ONE TABLET BY MOUTH AT BEDTIME TAKE ONE TABLET BY MOUTH AT BEDTIME SOLD: 05/24/2019 [facility] 75 mg 09/25/2018 12:00:00 AM EDT tablet 30 TAKE ONE TABLET BY MOUTH AT BEDTIME TAKE ONE TABLET BY MOUTH AT BEDTIME SOLD: 04/15/2019 [facility] 150 mg 08/22/2018 12:00:00 AM EDT tablet 30 TAKE ONE TABLET BY MOUTH AT BEDTIME TAKE ONE TABLET BY MOUTH AT BEDTIME SOLD: 02/22/2019 [facility] Insurance Providers Payer name Policy type / Coverage type Policy ID Covered constitution party ID Covered constitution party's relationship to lyons Policy Lyons Plan Information [facility] [id number] [facility] [id number] SP [id number] SELF PAY ONLY [id number] SP [id number] [facility] [id number] SP [id number] [facility] [id number] ANSI-Medicaid [id number] [facility] Plan Medicaid F [id number] SELF [id number] ANSI-Medicaid [id number] ANSI-Medicaid [id number] ANSI-Medicaid [id number] Medicaid [facility] Healthcare S D [id number] SELF [id number] ANSI-Medicaid [id number] ANSI-Medicaid [id number] Medicaid [facility] Healthcare S D [id number] SELF [id number] [facility] Community Plan Commercial [id number] Self [id number] Medicaid [place] [id number] Self [id number] [id number] SP [id number] ANSI-Medicaid [id number] ANSI-Medicaid [id number] [facility] Community Plan Commercial [id number] Self [id number] [facility] O [id number] S [id number] MEDICAID [id number] SP [id number] Problems, Conditions, and Diagnoses Code Display Name Description Problem Type Effective Dates Data Source(s) 12900594 Allergic asthma without status asthmatic us Allergic asthma without status asthmaticus Problem 03/17/2020 12:00:00 AM EST MEDENT ([facility], ) F10.10 [id number] Alcohol abuse Problem 01/08/2020 12:00:00 AM EST eCW1 ([facility]) [id number] Uncomplicated moderate persistent asthma Uncomplicated moderate persistent asthma Problem 12/08/2019 12:00:00 AM EDT MEDENT ([facility], ) J30.2 [id number] Seasonal allergies Problem 12/04/2019 12:00: 00 AM EDT eCW1 ([facility]) F31.31 [id number] Bipolar 1 disorder, depressed, mild Probl em 03/31/2019 12:00:00 AM EST eCW1 ([facility]) 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 Proble m 03/31/2019 12:00:00 AM EST eCW1 ([facility]) F30.3 [id number] 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 Proble m 03/31/2019 12:00:00 AM EST eCW1 ([facility]) F31.31 [id number] Bipolar 1 disorder, depressed, mild Probl em 03/31/2019 12:00:00 AM EST eCW1 ([facility]) J45.901 590385702 Moderate asthma with exacerbation, unspecified whether persistent Problem 02/05/2019 12:00:00 AM EST eCW1 ([facility]) J45.901 [id number] Moderate asthma with exacerbation, unspecified whether persistent Problem 02/05/2019 12:00:00 AM EST eCW1 ([facility]) Surgeries/Procedures Procedure Description Date Indications Data Source(s) Immunization: Flublok Quadrivalent (18 years & older) 0.5mL IM (Influenza) 01/08/2020 12:00:00 AM EST eCW1 ([facility]) Spirometry 12/08/2019 12:00:00 AM EDT Renay CHOI ([facility], ) PSYTX W PT 45 MINUTES 04/14/2019 12:00:00 AM EST eCW1 ([facility]) PSYCH DIAGNOSTIC EVALUATION 03/31/2019 12:00:00 AM EST eCW1 ([facility]) RIV4 VACC RECOMBINANT DNA IM 03/19/2019 12:00:00 AM ES T eCW1 ([facility]) IMMUNIZATION ADMIN 03/19/2019 12:00:00 AM EST eCW1 ([facility]) Results ID Date Data Source [id number] 03/31/2020 12:00:00 PM EST [facility] Name Value Range Interpretation Code Description Data Larissa rce(s) Supporting Document(s) SARS coronavirus 2 RNA Not Detected [facility] [place] This lab was ordered by [facility] and reported by [facility]. ID Date Data Source TSH 12/24/2019 03:45:08 AM EDT eCW1 ([facility]) Name Value Range Interpretation Code Description Data Larissa rce(s) Supporting Document(s) 3.170 THYROID STIMULATING HORMONE eC W1 ([facility]) ID Date Data Source [id number] 12/24/2019 03:45:08 AM EDT eCW1 ([facility]) Name Value Range Interpretation Code Description Data Larissa rce(s) Supporting Document(s) Hemoglobin A1c/Hemoglobin.total in Blood 5.1 HEMOGLOBIN A1c eCW1 ([facility]) ID Date Data Source Comprehensive Metabolic Profile (CMP) 12/24/2019 03:45:08 AM EDT eCW1 ([facility]) Name Value Range Interpretation Code Description Data Larissa rce(s) Supporting Document(s) 104 GLUCOSE, FASTING eCW1 ([facility]) > 60.0 GLOMERULAR FILTRATION RATE eCW 1 ([facility]) 18 BLOOD UREA NITROGEN eCW1 ([facility]) 140 SODIUM LEVEL eCW1 ([facility]) 0.89 CREATININE FOR GFR eCW1 ([facility]) 27 CARBON DIOXIDE LEVEL eCW1 ([facility]) 4.2 POTASSIUM SERUM eCW1 ([facility]) 109 CHLORIDE LEVEL eCW1 ([facility]) 13 AST/SGOT eCW1 ([facility]) 14 ALT/SGPT eCW1 ([facility]) 9.2 CALCIUM LEVEL eCW1 ([facility]) 66 ALKALINE PHOSPHATASE eCW1 ([facility]) 7.0 TOTAL PROTEIN eCW1 ([facility]) 3.7 ALBUMIN eCW1 ([facility]) 1.1 ALBUMIN/GLOBULIN RATIO eCW1 ([facility]) 0.4 BILIRUBIN,TOTAL eCW1 ([facility]) ID Date Data Source CBC with Differential 12/24/2019 03:45:08 AM EDT eCW1 ([facility]) Name Value Range Interpretation Code Description Data Larissa rce(s) Supporting Document(s) 7.3 WHITE BLOOD COUNT eCW1 ([facility]) 4.28 RED BLOOD COUNT [facility]CW1 [facility] [facility]) 12.8 HEMOGLOBIN eCW1 ([facility]) 39.4 HEMATOCRIT eCW1 ([facility]) 32.5 MEAN CORPUSCULAR HGB CONC eCW1 ([facility]) 29.9 MEAN CORPUSCULAR HEMOGLOBIN eC W1 ([facility]) 92.1 MEAN CORPUSCULAR VOLUME eCW1 ( [facility]) 12.5 RED CELL DISTRIBUTION WIDTH eC W1 ([facility]) 61.0 NEUTROPHILS % eCW1 ([facility]) 25.0 LYMPH % eCW1 ([facility]) 330 PLATELET COUNT, AUTOMATED eCW1 ([facility]) 1.1 BASO % eCW1 ([facility]) 3.4 EOS % eCW1 ([facility]) 4.5 NEUTROPHILS # eCW1 ([facility]) 9.2 MONO % eCW1 ([facility]) 0.3 EOS # eCW1 ([facility]) 1.8 LYMPH # eCW1 ([facility]) 0.7 MONO # eCW1 ([facility]) 0.1 BASO # eCW1 ([facility]) Procedure Social History Code Duration Value Status Description Data Source(s ) Smoking 01/08/2020 12:00:00 AM EST Former Smoker completed Former Smoker eCW1 ([facility]) Smoking 01/08/2020 12:00:00 AM EST Former Smoker completed Former Smoker eCW1 ([facility]) Smoking 12/08/2019 12:00:00 AM EDT Patient is a former smoker completed Patient is a former smoker [facility] ([facility]) Smoking 12/04/2019 12:00:00 AM EDT Former Smoker completed Former Smoker eCW1 ([facility]) Smoking 12/04/2019 12:00:00 AM EDT Former Smoker completed Former Smoker eCW1 ([facility]) Vital Signs ID Date Data Source UNK Name Value Range Interpretation Code Description Data Source(s) Body surface area Derived from formula 1.79 m2 1.79 m2 [facility] ([facility]) Body weight 68.040 kg 68.040 kg [facility] ([facility]) [place] body weight 135 [lb_av] 135 [lb_av] MEDEN T ([facility]) Body mass index (BMI) [Ratio] 23.5 kg/m2 23.5 k g/m2 MEDENT ([facility]) Body weight 150.00 [lb_av] 150.00 [lb_av] MEDEN T ([facility]) Body height 67 [in_i] 67 [in_i] MEDENT ([facility]) 5'7" Diastolic blood pressure 66 mm[Hg] 66 mm[Hg] MEDENT ([facility]) Systolic blood pressure 114 mm[Hg] 114 mm[Hg] M EDENT ([facility]) Diastolic blood pressure 56 mm[Hg] 56 mm[Hg] eCW1 ([facility]) Systolic blood pressure 102 mm[Hg] 102 mm[Hg] e CW1 ([facility]) Body temperature 97.9 [degF] 97.9 [degF] eCW1 ( [facility]) Respiratory rate 17 /min 17 /min eCW1 ([facility]) Heart rate 78 /min 78 /min eCW1 ([facility]) Body mass index (BMI) [Ratio] 23.77 kg/m2 23.77 kg/m2 W1 ([facility]) Body height 67 [in_i] 67 [in_i] eCW1 ([facility]) Body weight 151.8 [lb_av] 151.8 [lb_av] eCW1 ([facility]) Body surface area Derived from formula 1.77 m2 1.77 m2 [facility] ([facility]) Body weight 67.586 kg 67.586 kg [facility] ([facility]) [place] body weight 130 [lb_av] 130 [lb_av] MEDEN T ([facility]) Body mass index (BMI) [Ratio] 23.7 kg/m2 23.7 k g/m2 [facility] ([facility]) Body weight 149.00 [lb_av] 149.00 [lb_av] MEDEN T ([facility]) Body height 66.5 [in_i] 66.5 [in_i] MEDENT ([facility]) 5'6.50" Body temperature 97.3 [degF] 97.3 [degF] [facility] ([facility], ) Oxygen saturation in Arterial blood by Pulse oximetry 100 % 100 % [facility] ([facility], ) Heart rate 76 /min 76 /min [facility] ([facility], ) Diastolic blood pressure 76 mm[Hg] 76 mm[Hg] [facility] ([facility], ) Systolic blood pressure 114 mm[Hg] 114 mm[Hg] M EDENT ([facility], ) Diastolic blood pressure 77 mm[Hg] 77 mm[Hg] eCW1 ([facility]) Systolic blood pressure 129 mm[Hg] 129 mm[Hg] e CW1 ([facility]) Body temperature 97.8 [degF] 97.8 [degF] eCW1 ( [facility]) Respiratory rate 16 /min 16 /min eCW1 ([facility]) Heart rate 67 /min 67 /min eCW1 ([facility]) Body mass index (BMI) [Ratio] 22.24 kg/m2 22.24 kg/m2 W1 ([facility]) Body height 67 [in_i] 67 [in_i] eCW1 ([facility]) Body weight 142 [lb_av] 142 [lb_av] eCW1 ([facility]) Diastolic blood pressure 86 mm[Hg] 86 mm[Hg] eCW1 ([facility]) Systolic blood pressure 155 mm[Hg] 155 mm[Hg] e CW1 ([facility]) Body temperature 97.9 [degF] 97.9 [degF] eCW1 ( [facility]) Respiratory rate 17 /min 17 /min eCW1 ([facility]) Heart rate 92 /min 92 /min eCW1 ([facility]) Body mass index (BMI) [Ratio] 23.21 kg/m2 23.21 kg/m2 W1 ([facility]) Body height 67 [in_us] 67 [in_us] eCW1 ([facility]) Body weight Measured 148.2 [lb_av] 148.2 [lb_av ] eCW1 ([facility]) Diastolic blood pressure 67 mm[Hg] 67 mm[Hg] eCW1 ([facility]) Systolic blood pressure 111 mm[Hg] 111 mm[Hg] e CW1 ([facility]) Body temperature 97.4 [degF] 97.4 [degF] eCW1 ( [facility]) Respiratory rate 18 /min 18 /min eCW1 ([facility]) Heart rate 68 /min 68 /min eCW1 ([facility]) Body mass index (BMI) [Ratio] 23.68 kg/m2 23.68 kg/m2 eCW1 ([facility]) Body height 67 [in_us] 67 [in_us] eCW1 ([facility]) Body weight Measured 151.2 [lb_av] 151.2 [lb_av ] eCW1 ([facility]) Diastolic blood pressure 68 mm[Hg] 68 mm[Hg] eCW1 ([facility]) Systolic blood pressure 111 mm[Hg] 111 mm[Hg] e CW1 ([facility]) Body temperature 97.7 [degF] 97.7 [degF] eCW1 ( [facility]) Respiratory rate 18 /min 18 /min eCW1 ([facility]) Heart rate 56 /min 56 /min eCW1 ([facility]) Body mass index (BMI) [Ratio] 22.86 kg/m2 22.86 kg/m2 eCW1 ([facility]) Body height 67 [in_us] 67 [in_us] eCW1 ([facility]) Body weight Measured 146 [lb_av] 146 [lb_av] eC W1 ([facility]) Diastolic blood pressure 71 mm[Hg] 71 mm[Hg] eCW1 ([facility]) Systolic blood pressure 108 mm[Hg] 108 mm[Hg] e CW1 ([facility]) Body temperature 97.6 [degF] 97.6 [degF] eCW1 ( [facility]) Respiratory rate 20 /min 20 /min eCW1 ([facility]) Heart rate 74 /min 74 /min eCW1 ([facility]) Body mass index (BMI) [Ratio] 23.02 kg/m2 23.02 kg/m2 eCW1 ([facility]) Body height 67 [in_us] 67 [in_us] eCW1 ([facility]) Body weight Measured 147 [lb_av] 147 [lb_av] eC W1 ([facility]) Patient Treatment Plan of Care Planned Activity Planned Date Details Description Data Source (s) aripiprazole 10 MG Oral Tablet 01/08/2020 12:00:00 AM EST eCW1 ([facility]) aripiprazole 10 MG Oral Tablet 01/08/2020 12:00:00 AM EST eCW1 ([facility]) levocetirizine dihydrochloride 5 MG Oral Tablet 12/08/2019 12:00:00 AM EDT eCW1 ([facility]) levocetirizine dihydrochloride 5 MG Oral Tablet 12/08/2019 12:00:00 AM EDT eCW1 ([facility]) POLYETHYLENE GLYCOL 3350 142 MG/ML Oral Solution [Elle lax] 12/04/2019 12:00:00 AM EDT eCW1 ([facility]) POLYETHYLENE GLYCOL 3350 142 MG/ML Oral Solution [Elle lax] 12/04/2019 12:00:00 AM EDT eCW1 ([facility]) Fexofenadine hydrochloride 180 MG Oral Tablet 12/04/2019 12:00:00 A M EDT eCW1 ([facility]) POLYETHYLENE GLYCOL 3350 142 MG/ML Oral Solution [Elle lax] 12/04/2019 12:00:00 AM EDT eCW1 ([facility]) Fexofenadine hydrochloride 180 MG Oral Tablet 12/04/2019 12:00:00 A M EDT eCW1 ([facility]) Famotidine 40 MG Oral Tablet 03/10/2019 12:00:00 AM EST eCW1 ([facility]) Famotidine 40 MG Oral Tablet 03/10/2019 12:00:00 AM EST eCW1 ([facility]) 12 HR Guaifenesin 600 MG Extended Release Oral Tablet [Mucinex] 02/05/2019 12:00:00 AM EST eCW1 ([facility]) Prednisone 20 MG Oral Tablet 02/05/2019 12:00:00 AM EST eCW1 ([facility])
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
[2020-04-05] MEDS ORDERED: ECHI1CAP2 PO (09:54)
[2020-04-05] MEDS ORDERED: CLAR10CA3 PO (09:54)
[2020-04-05] MEDS ORDERED: propofoL 200 MG/20 ML VIAL As Ordered ONE ×2 (10:16→10:36)
--- NOTE | 2020-04-05 10:47 | ROOR ---
Patient Name: Carol Caldwell Procedure Date: 04/05/2020 10:14 AM Date of : 1975 Age: 44 Room: [facility] Gender: Female Note Status: Finalized Procedure: Colonoscopy Indications: Constipation Providers: Robin Shoemaker MD Referring MD: Flaquita Johnson Md Requesting Provider: Medicines: Monitored Anesthesia Care Complications: No immediate complications. Procedure: Pre-Anesthesia Assessment: - Prior to the procedure, a History and Physical was performed, and patient medications and allergies were reviewed. The patient is competent. The risks and benefits of the procedure and the sedation options and risks were discussed with the patient. All questions were answered and informed consent was obtained. Patient identification and proposed procedure were verified by the physician, the nurse and the anesthesiologist in the procedure room. Mental Status Examination: alert and oriented. Airway Examination: normal oropharyngeal airway and neck mobility. Respiratory Examination: clear to auscultation. CV Examination: normal. Prophylactic Antibiotics: The patient does not require prophylactic antibiotics. Prior Anticoagulants: The patient has taken no previous anticoagulant or antiplatelet agents. ASA Grade Assessment: II - A patient with mild systemic disease. After reviewing the risks and benefits, the patient was deemed in satisfactory condition to undergo the procedure. The anesthesia plan was to use monitored anesthesia care (MAC). Immediately prior to administration of medications, the patient was re-assessed for adequacy to receive sedatives. The heart rate, respiratory rate, oxygen saturations, blood pressure, adequacy of pulmonary ventilation, and response to care were monitored throughout the procedure. The physical status of the patient was re-assessed after the procedure. The Colonoscope was introduced through the anus and advanced to the terminal ileum, with identification of the appendiceal orifice and IC valve. The colonoscopy was performed without difficulty. The patient tolerated the procedure well. The quality of the bowel preparation was good. The terminal ileum, ileocecal valve, appendiceal orifice, and rectum were photographed. Scope insertion time was 3 minutes. Scope withdrawal time was 8 minutes. The total duration of the procedure was 12 minutes. Findings: The perianal and digital rectal examinations were normal. The terminal ileum appeared normal. The colon (entire examined portion) was moderately tortuous. Non-bleeding external and internal hemorrhoids were found during retroflexion. The hemorrhoids were small. No other significant abnormalities were identified in a careful examination of the remainder of the colon. Impression: - The examined portion of the ileum was normal. - Tortuous colon. - Non-bleeding external and internal hemorrhoids. - No specimens collected. Recommendation: - Patient has a contact number available for emergencies. The signs and symptoms of potential delayed complications were discussed with the patient. Return to normal activities tomorrow. Written discharge instructions were provided to the patient. - High fiber diet. - Continue present medications. - Repeat colonoscopy in 10 years for screening purposes. - Use fiber, for example Citrucel, Fibercon, Konsyl or Metamucil. - Return to GI clinic in 10 years. - Telephone GI clinic if symptomatic PRN. - Return to primary care physician. Procedure Code(s): --- Professional --- 98940, Colonoscopy, flexible; diagnostic, including collection of specimen(s) by brushing or washing, when performed (separate procedure) Diagnosis Code(s): --- Professional --- K64.8, Other hemorrhoids K59.00, Constipation, unspecified Q43.8, Other specified congenital malformations of intestine CPT copyright 2019 [employer]. All rights reserved. The codes documented in this report are preliminary and upon check inspector review may be revised to meet current compliance requirements. Robin Shoemaker MD Robin Shoemaker MD 04/05/2020 10:47:40 AM Electronically signed by Robin Shoemaker MD Number of Addenda: 0 Note Initiated On: 04/05/2020 10:14 AM Estimated Blood Loss: Estimated blood loss: none.
[2020-04-05 11:05] VITALS: BP 88/54
== END 2020-04-05 11:11 | disposition home or self-care (01) ==
LOC: M OPP 09:15
PROVIDERS: ATTEND Internal Medicine Gastroenterology
DX: K59.00 Constipation, unspecified (principal); K64.8 Other hemorrhoids; Q43.8 Other specified congenital malformations of intestine; R12 Heartburn; F41.9 Anxiety disorder, unspecified; F32.9 Major depressive disorder, single episode, unspecified; G43.909 Migraine, unspecified, not intractable, without status migrainosus; J45.909 Unspecified asthma, uncomplicated; Z79.51 Long term (current) use of inhaled steroids; Z79.899 Other long term (current) drug therapy; Z82.49 Family history of ischemic heart disease and other diseases of the circulatory system; Z83.3 Family history of diabetes mellitus; Z80.8 Family history of malignant neoplasm of other organs or systems

== ENCOUNTER 2020-10-12 08:38 | Emergency (ER) | payer OTHER ==
[~2020-10-12] VITALS: Ht 170.2 cm; Wt 69.5 kg
[~2020-10-12 08:38] MED LIST changes: +ARIP10TA32 PO; -ARIP1TAB PO; +CLAR10CA3 PO; +ECHI1CAP2 PO; +MONT10TA10; +MONT10TA10 PO; -MONT5TAB2; -MONT5TAB2 PO; -NS 1,000 ML IV ONE
[2020-10-12] MEDS ORDERED: FEXO60CA (09:11)
[2020-10-12 09:20] LABS: BASO # 0.1 10^3/uL (0.0-0.2); BASO % 1.3 % (0.0-1.0); EOS # 0.2 10^3/uL (0.0-0.5); EOS % 3.7 % (0.0-3.0); HEMATOCRIT 37.8 % (36.0-47.0); HEMOGLOBIN 12.6 g/dl (12.0-15.5); LYMPH # 1.8 10^3/uL (1.5-5.0); LYMPH % 38.3 % (24.0-44.0); MEAN CORPUSCULAR HEMOGLOBIN 29.9 pg (27.0-33.0); MEAN CORPUSCULAR HGB CONC 33.3 g/dl (32.0-36.5); MEAN CORPUSCULAR VOLUME 89.8 fl (80.0-96.0); MONO # 0.3 10^3/uL (0.0-0.8); NEUTROPHILS # 2.3 10^3/uL (1.5-8.5); NEUTROPHILS % 49.5 % (36.0-66.0); PLATELET COUNT, AUTOMATED 319 10^3/uL (150-450); RED BLOOD COUNT 4.21 10^6/uL (4.00-5.40); WHITE BLOOD COUNT 4.6 10^3/uL (4.0-10.0)
--- NOTE | 2020-10-12 09:25 | REP ---
INDICATION: CHEST PAIN. COMPARISON: None. TECHNIQUE: Portable FINDINGS: The technique utilized in obtaining the radiograph has magnified the cardiac silhouette and accentuated the interstitial markings. The superior mediastinal structures are midline. The cardiac silhouette is unremarkable in size, shape, and position. The diaphragmatic surfaces of the lungs are regular, and the costophrenic angles are clear. The pulmonary taylor are clear. The imaged osseous structures are intact. Note is made of bilateral thoracic and lumbar spine fixators. IMPRESSION: There is no acute cardiopulmonary disease. <Electronically signed by Tang Maurice > 10/12/20 [id number]
[2020-10-12 09:50] LABS: ALBUMIN 3.8 GM/DL (3.2-5.2); ALT/SGPT 18 U/L (12-78); BILIRUBIN,DIRECT 0.1 MG/DL (0.0-0.2); BILIRUBIN,TOTAL 0.4 MG/DL (0.2-1.0); BLOOD UREA NITROGEN 23 MG/DL (7-18); CALCIUM LEVEL 9.5 MG/DL (8.5-10.1); CARBON DIOXIDE LEVEL 23 MEQ/L (21-32); CHLORIDE LEVEL 111 MEQ/L (98-107); CREATININE FOR GFR 0.79 MG/DL (0.55-1.30); GLOMERULAR FILTRATION RATE > 60.0 (>58); GLUCOSE, FASTING 92 MG/DL (70-100); SODIUM LEVEL 142 MEQ/L (136-145); TOTAL PROTEIN 6.9 GM/DL (6.4-8.2)
[2020-10-12 09:51] LABS: FREE T4 0.88 NG/DL (0.76-1.46); LIPASE 152 U/L (73-393)
[2020-10-12] MEDS ORDERED: NITROGLYCERIN 0.4 MG SUBL TABLET SL PRN (10:20)
[2020-10-12] MEDS ORDERED: ASPIRIN 81 MG CHEW TABLET PO ONE (10:20)
[2020-10-12 10:21] LABS: CK-MB VALUE MASS < 1.0 NG/ML (<3.6); CPK CREATINE PHOSPHOKINASE 67 U/L (26-192); MB/CK RELATIVE INDEX 1.49 (< OR =4); TROPONIN I < 0.02 NG/ML (< 0.10)
[2020-10-12 10:47] VITALS: BP 113/72
[2020-10-12] MEDS ORDERED: ISOVUE-370 76% 100ML VIAL As Ordered ONE (11:01)
--- NOTE | 2020-10-12 11:38 | REP ---
INDICATION: chest pain. COMPARISON: Portable plain film chest x-ray performed earlier today and PA and lateral plain film chest x-ray dated 03/08/2017. TECHNIQUE: Chest CT with IV contrast, pulmonary artery angiography protocol. FINDINGS: Post processing is applied to the images with beam hardening reduction software because of the thoracic spine Caballero rods. However, the beam hardening spray artifact is, in fact, much worse after applying the beam hardening reduction software, for reasons unknown to this examiner. There are no emboli in the pulmonary trunk or central pulmonary arteries. There are no emboli in the pulmonary artery lobe or segment branches on the right or the left. There are no infiltrates or pleural effusions. There are no lung masses or nodules. The thoracic aorta is unremarkable. The cardiac size is normal. There is no pericardial effusion. The visualized upper abdominal structures are unremarkable. There is Caballero aimee fixation of the thoracic spine. On the comparison plain film studies the Caballero aimee fixation extends into the lumbar spine. IMPRESSION: No pulmonary emboli are identified. There are thoracic spine Caballero rods. Beam hardening reduction software is utilized as described above. Otherwise, negative chest CT. <Electronically signed by David Garcia > 10/12/20 [id number]
[2020-10-12 15:40] LABS: CK-MB VALUE MASS < 1.0 NG/ML (<3.6); CPK CREATINE PHOSPHOKINASE 54 U/L (26-192); MB/CK RELATIVE INDEX 1.85 (< OR =4); TROPONIN I < 0.02 NG/ML (< 0.10)
[2020-10-12 18:15] VITALS: BP 108/73
--- NOTE | 2020-10-13 07:01 | ECGEPIP ---
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
--- NOTE | 2020-10-13 07:10 | ECGEPIP ---
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
== END 2020-10-12 18:29 | disposition home or self-care (01) ==
LOC: M ED 08:38
DX: R07.9 Chest pain, unspecified (principal); J45.909 Unspecified asthma, uncomplicated; F31.9 Bipolar disorder, unspecified; F60.3 Borderline personality disorder; K21.9 Gastro-esophageal reflux disease without esophagitis; Z79.899 Other long term (current) drug therapy; Z87.891 Personal history of nicotine dependence
CPT/HCPCS: 36415; 71045; 71275; 80048; 80076; 82550; 82553; 83690; 84439; 84443; 85025; 93005; 93041; 94760; 99285; Q9967

== ENCOUNTER → 2020-10-25 | Outpatient (CLI) | payer OTHER ==
[~2020-10-25] MED LIST changes: +FEXO60CA
[2020-10-25 10:32] LABS: CHOLESTEROL RISK RATIO 2.16 (<5)
== END ==
LOC: M WUC 08:13
PROVIDERS: ATTEND Student in an Organized Health Care Education/Training Program
DX: Z00.00 Encounter for general adult medical examination without abnormal findings (principal); Z79.899 Other long term (current) drug therapy

== ENCOUNTER → 2020-11-15 | Outpatient (REF) | LOC: M LAB 15:48 | PROVIDERS: ATTEND Nurse Practitioner Adult Health | DX: Z00.00 Encounter for general adult medical examination without abnormal findings (principal) ==

== ENCOUNTER → 2021-01-03 | Outpatient (CLI) | payer OTHER ==
--- NOTE | 2021-01-03 11:39 | REP ---
INDICATION: ATRAUMATIC CERVICAL PAIN. COMPARISON: None. TECHNIQUE: Multiple views FINDINGS: Seven views of the cervical spine show no acute fracture, dislocation or subluxation. The intervertebral disc spaces are symmetric and well maintained. The facet joints are well aligned bilaterally. The intervertebral foramina are patent bilaterally and the neural canal is not encroached upon. There is no destructive osseous lesion. Flexion and extension does not appear to be particularly limited radiographically. There is a mild dextroconvex cervical curve. The anterior spinal soft tissues appear unremarkable. IMPRESSION: Mild dextroconvex cervical curve possibly secondary to muscular spasm or patient positioning. This needs to be correlated clinically. If the patient has been involved in trauma then CT is recommended. <Electronically signed by Tang Maurice > 01/03/21 [id number]
== END ==
LOC: M WUC 09:14
PROVIDERS: ATTEND Family Medicine
DX: M54.2 Cervicalgia (principal)

== ENCOUNTER → 2021-01-25 | Outpatient (CLI) | payer OTHER ==
--- NOTE | 2021-01-25 12:10 | REP ---
INDICATION: LOW BACK PAIN COMPARISON: None. TECHNIQUE: AP, lateral, flexion/extension, bilateral oblique, and coned-down views. FINDINGS: Caballero rods are identified through the visualized lower thoracic and upper lumbar spine to the L2 level. Chronic levoconvex scoliosis centered at L2-3 is appreciated. Moderate multilevel degenerative changes include endplate sclerosis, osteophytosis and facet arthropathy. No acute fracture/compression injury. IMPRESSION: Moderate multilevel degenerative changes as noted above. <Electronically signed by Neal Monsivais > 01/25/21 [id number]
== END ==
LOC: M WUC 11:38
PROVIDERS: ATTEND Family Medicine
DX: M41.26 Other idiopathic scoliosis, lumbar region (principal); M54.50 Low back pain, unspecified

== ENCOUNTER 2021-03-25 23:44 | Emergency (ER) | payer OTHER ==
[~2021-03-25] VITALS: Ht 170.2 cm; Wt 72.2 kg
[~2021-03-25 23:44] MED LIST changes: -MONT10TA10; -MONT10TA10 PO; +MONT10TA97; +MONT10TA97 PO; +OMEP-173 PO; -OMEP-218 PO
[2021-03-25] MEDS ORDERED: GABA-282 PO (23:51)
[2021-03-26 03:10] VITALS: BP 143/71
== END 2021-03-26 03:12 | disposition home or self-care (01) ==
LOC: M ED 23:44
DX: M62.830 Muscle spasm of back (principal); J45.909 Unspecified asthma, uncomplicated; K21.9 Gastro-esophageal reflux disease without esophagitis; M43.25 Fusion of spine, thoracolumbar region; Z79.899 Other long term (current) drug therapy

== ENCOUNTER 2021-07-18 16:26 | Emergency (ER) | payer OTHER ==
[~2021-07-18] VITALS: Ht 170.2 cm; Wt 71.9 kg
[2021-07-18 16:26] VITALS: BP 141/70
[~2021-07-18 16:26] MED LIST changes: -FEXO60CA; +FEXO60TA99; +GABA-282 PO
[2021-07-18] MEDS ORDERED: MONT10TA97 (16:42)
[2021-07-18] MEDS ORDERED: TIZA2TA (16:42)
[2021-07-18] MEDS ORDERED: SUMA50TA2 (16:42)
[2021-07-18] MEDS ORDERED: AMIT75TA (16:42)
[2021-07-18 17:13] LABS: BASO # 0.1 10^3/uL (0.0-0.2); BASO % 0.9 % (0.0-1.0); EOS # 0.1 10^3/uL (0.0-0.5); EOS % 1.6 % (0.0-3.0); HEMATOCRIT 37.3 % (36.0-47.0); HEMOGLOBIN 12.2 g/dl (12.0-15.5); LYMPH # 0.3 10^3/uL (1.5-5.0); MEAN CORPUSCULAR HEMOGLOBIN 30.3 pg (27.0-33.0); MEAN CORPUSCULAR HGB CONC 32.7 g/dl (32.0-36.5); MEAN CORPUSCULAR VOLUME 92.8 fl (80.0-96.0); MONO # 0.5 10^3/uL (0.0-0.8); MONO % 9.6 % (2.0-8.0); NEUTROPHILS # 4.6 10^3/uL (1.5-8.5); NEUTROPHILS % 82.5 % (36.0-66.0); PLATELET COUNT, AUTOMATED 244 10^3/uL (150-450); RED BLOOD COUNT 4.02 10^6/uL (4.00-5.40); WHITE BLOOD COUNT 5.6 10^3/uL (4.0-10.0)
[2021-07-18 17:53] LABS: ALBUMIN 3.7 GM/DL (3.2-5.2); ALT/SGPT 16 U/L (12-78); BILIRUBIN,DIRECT 0.1 MG/DL (0.0-0.2); BILIRUBIN,TOTAL 0.2 MG/DL (0.2-1.0); BLOOD UREA NITROGEN 6 MG/DL (7-18); CALCIUM LEVEL 8.9 MG/DL (8.5-10.1); CARBON DIOXIDE LEVEL 26 MEQ/L (21-32); CHLORIDE LEVEL 107 MEQ/L (98-107); CREATININE FOR GFR 0.82 MG/DL (0.55-1.30); GLOMERULAR FILTRATION RATE > 60.0 (>58); GLUCOSE, FASTING 96 MG/DL (70-100); POTASSIUM SERUM 3.9 MEQ/L (3.5-5.1); SODIUM LEVEL 138 MEQ/L (136-145); THYROXINE (T4) 11.2 UG/DL (4.5-12.0)
== END 2021-07-18 20:07 | disposition left against medical advice (07) ==
LOC: M ED 16:26
DX: Z53.21 Procedure and treatment not carried out due to patient leaving prior to being seen by health care provider (principal)

== ENCOUNTER 2022-02-15 23:06 | Emergency (ER) | payer MEDICAID, OTHER ==
[~2022-02-15] VITALS: Ht 170.2 cm; Wt 65.9 kg
[~2022-02-15 23:06] MED LIST changes: +AMIT75TA; +SUMA50TA2; +TIZA2TA
[2022-02-15 23:30] LABS: BASO # 0.1 10^3/uL (0.0-0.2); BASO % 0.9 % (0.0-1.0); EOS # 0.1 10^3/uL (0.0-0.5); EOS % 1.1 % (0.0-3.0); HEMATOCRIT 36.7 % (36.0-47.0); HEMOGLOBIN 12.3 g/dl (12.0-15.5); LYMPH # 1.8 10^3/uL (1.5-5.0); LYMPH % 23.5 % (24.0-44.0); MEAN CORPUSCULAR HEMOGLOBIN 30.3 pg (27.0-33.0); MEAN CORPUSCULAR HGB CONC 33.5 g/dl (32.0-36.5); MEAN CORPUSCULAR VOLUME 90.4 fl (80.0-96.0); MONO # 0.7 10^3/uL (0.0-0.8); MONO % 9.2 % (2.0-8.0); NEUTROPHILS % 65.2 % (36.0-66.0); PLATELET COUNT, AUTOMATED 374 10^3/uL (150-450); RED BLOOD COUNT 4.06 10^6/uL (4.00-5.40); WHITE BLOOD COUNT 7.6 10^3/uL (4.0-10.0)
[2022-02-15 23:52] LABS: HCG, SERUM QUALITATIVE NEGATIVE (NEGATIVE)
[2022-02-15 23:55] LABS: ETHYL ALCOHOL (ETHANOL) 0.284 % (0.000-0.010)
[2022-02-15 23:56] LABS: ACETAMINOPHEN LEVEL < 2.0 UG/ML (10.0-20.0); BILIRUBIN,DIRECT 0.1 MG/DL (<0.4); SALICYLATE LEVEL < 3.0 MG/DL (<30)
[2022-02-15 23:59] LABS: THYROID STIMULATING HORMONE 0.938 uIU/ML (0.55-4.78)
[2022-02-16 00:02] LABS: ALBUMIN 3.5 G/DL (3.2-5.2); ALKALINE PHOSPHATASE 75 U/L (46-116); ALT/SGPT 19 U/L (7.0-40); AST/SGOT 19 U/L (<34); BILIRUBIN,TOTAL 0.3 MG/DL (0.3-1.2); BLOOD UREA NITROGEN < 5 MG/DL (9-23); CALCIUM LEVEL 8.7 MG/DL (8.5-10.1); CARBON DIOXIDE LEVEL 26 MMOL/L (20-31); CHLORIDE LEVEL 107 MMOL/L (98-107); CREATININE FOR GFR 0.73 MG/DL (0.55-1.30); GLOMERULAR FILTRATION RATE > 60.0 (>58); GLUCOSE, FASTING 131 MG/DL (60-100); POTASSIUM SERUM 3.2 MMOL/L (3.5-5.1); SODIUM LEVEL 143 MMOL/L (136-145); TOTAL PROTEIN 6.7 G/DL (5.7-8.2)
[2022-02-16] MEDS ORDERED: POTASSIUM CHLORIDE 10MEQ SR TABLET PO ONE (01:00)
[2022-02-16 02:22] VITALS: BP 110/73
== END 2022-02-16 02:39 | disposition home or self-care (01) ==
LOC: M ED 23:06
DX: F10.129 Alcohol abuse with intoxication, unspecified (principal); S00.03XA Contusion of scalp, initial encounter; W19.XXXA Unspecified fall, initial encounter; G43.909 Migraine, unspecified, not intractable, without status migrainosus; Z79.899 Other long term (current) drug therapy

== ENCOUNTER → 2022-04-04 | Outpatient (REF) | payer OTHER | LOC: M SFHCLERA 16:35 | PROVIDERS: ATTEND Family Medicine | DX: R30.0 Dysuria (principal) ==

== ENCOUNTER → 2022-06-14 | Outpatient (REF) | LOC: M EMP 14:43 | PROVIDERS: ATTEND Family Medicine | DX: Z20.822 Contact with and (suspected) exposure to COVID-19 (principal); Z11.52 Encounter for screening for COVID-19 ==

== ENCOUNTER → 2023-07-02 | Outpatient (REF) | LOC: M EMP 11:52 | PROVIDERS: ATTEND Family Medicine | DX: Z11.52 Encounter for screening for COVID-19 (principal) ==

== ENCOUNTER → 2023-07-02 | Outpatient (REF) | LOC: M EMP 12:00 | PROVIDERS: ATTEND Family Medicine | DX: Z11.52 Encounter for screening for COVID-19 (principal) ==

== ENCOUNTER → 2023-07-04 | Outpatient (REF) | payer OTHER ==
[2023-07-04 16:03] LABS: RSV AMPLIFICATION NEGATIVE (NEGATIVE)
== END ==
LOC: M SFHCPLAZ 14:56
PROVIDERS: ATTEND Student in an Organized Health Care Education/Training Program
DX: J06.9 Acute upper respiratory infection, unspecified (principal)